=== PATIENT | male | born 1985 | race Caucasian/White ===

== ENCOUNTER 2022-02-04 11:02 | Outpatient (CLI) | payer BC, SELFPAY | END 2022-02-04 11:03 | disposition home or self-care (01) | LOC: AMB 02-16 14:31 | PROVIDERS: Visit Provider Family Medicine | DX: S89.91XA Unspecified injury of right lower leg, initial encounter (principal); S89.92XA Unspecified injury of left lower leg, initial encounter; V49.3XXA Car occupant (driver) (passenger) injured in unspecified nontraffic accident, initial encounter; Y92.410 Unspecified street and highway as the place of occurrence of the external cause | CPT/HCPCS: A0425; A0433 ==

== ENCOUNTER 2023-10-31 12:01 | Emergency (ER) | payer BC, SELFPAY ==
[2023-10-31 12:15] VITALS: BP 164/99; PULSE 69; RESP 16; TEMP 36.8; O2SAT 95; BMI 40.6
[2023-10-31 12:29] LABS: Appearance Urine Clear (Clear); Bilirubin Urine Negative (Negative); Blood Urine Negative (Negative); Color Urine Yellow (Yellow); Glucose Urine Negative (Negative); Ketones Urine Negative (Negative); Leukocyte Esterase Urine Negative (Negative); Nitrite Urine Negative (Negative); Protein Urine Negative (Negative)
--- NOTE | 2023-10-31 12:39 | CRLHL7_ITS ---
For Patients: As a result of the Century Cures Act, medical imaging exams and procedure reports are released immediately into your electronic medical record. You may view this report before your referring provider. If you have questions, please contact your health care provider. INDICATION: Abdominal pain, diverticulitis?. TECHNIQUE: CT abdomen and pelvis acquired with 98 cc Omnipaque 350 IV contrast. COMPARISON: None. FINDINGS: Lower chest: Unremarkable. Liver: Unremarkable. Normal in size and attenuation. No suspicious masses. Gallbladder and bile ducts: Unremarkable. No stones or inflammation. No biliary dilatation. Pancreas: Unremarkable. No mass or inflammation. Spleen: Unremarkable. Normal in size. No masses. Adrenal glands: Unremarkable. No nodules. Kidneys: Unremarkable. No suspicious masses, stones, or hydronephrosis. GI tract: Thickening of the sigmoid colon with surrounding soft tissue stranding and peritoneal thickening. Descending colonic and sigmoid diverticulosis. No evidence fluid collection. No obstruction. Normal appendix. Vasculature: Abdominal aorta is normal in caliber. Mesenteric arteries are patent. Lymph nodes: No lymphadenopathy. Peritoneum/Abdominal Wall: No evidence of free air or free fluid. Tiny fat containing umbilical hernia. Pelvis: Unremarkable. Bones: T10-L2 PSIF. Mild degenerative disease of the spine. IMPRESSION: Acute uncomplicated sigmoid diverticulitis. Please note that all CT scans at this facility use dose modulation, iterative reconstruction, and/or weight-based dosing when appropriate to reduce radiation dose to as low as reasonably achievable. Dictated by Sarah Hare MD @ 10/31/2023 2:51:21 PM (Electronically Signed)
--- NOTE | 2023-10-31 12:40 | ED.ABDPAIN ---
HPI - Abdominal Pain General Chief Complaint: Abdominal Pain Stated Complaint: Poss diverticulitis Time Seen by Provider: 10/31/23 12:32 History of Present Illness HPI narrative: This 38-year-old male comes in reporting abdominal pain that is constant and occurring over the past 2 or 3 days. He states that he has a history of diverticulosis seen on colonoscopy but has never had diverticulitis. Other family members have had diverticulitis. He reports increased pain when attempting have a bowel movement. He also reports a feeling of incomplete voiding of urine when passing urine. He has not had any fevers. There is no report of blood in the toilet. Related Data Previous Rx's ?Medication ?Instructions ?Recorded ciprofloxacin HCl 500 mg tablet 500 mg PO BID #10 tabs 10/31/23 (Cipro) ketorolac 10 mg tablet 10 mg PO Q8H 5 days #15 tabs 10/31/23 metronidazole 500 mg tablet 500 mg PO BID 7 days #14 tabs 10/31/23 Allergies Allergy/AdvReac Type Severity Reaction Status Date / Time ampicillin Allergy Mild Unknown Verified 11/05/21 11:16 sulbactam Allergy Mild Unknown Verified 11/05/21 11:16 morphine Allergy Unknown Verified 11/05/21 11:16 Review of Systems Status of ROS Reports: 10 or more systems reviewed and unremarkable except as noted in History and below Narrative Constitutional: No fevers, no weight gain or loss. Eyes: No discharge. No vision changes. HENT: No congestion, no sore throat, no ear pain. Cardiovascular: No chest pain, no palpitations. Respiratory: No shortness of breath, no wheezes, no cough. Gastrointestinal: No vomiting, no diarrhea. Abdominal pain as described above. Genitourinary: No dysuria, no hematuria. Musculoskeletal: Normal range of motion. Skin: No rashes, no pruritis. Neurological: No dizziness, weakness, sensory change, speech change. Endo/Heme/Allergies: No bruising or bleeding. No polydipsia. Pysch: no suicidality, no anxiety, no insomnia. All other systems reviewed and are negative. [facility] Social History Smoking Status: Smoker, status unknown Exam Narrative: Exam Narrative: Constitutional: Well-developed, well-nourished, no acute distress. HEENT: Normocephalic, atraumatic. Neck: Normal range of motion. Nontender. Supple. Heart: Regular. No murmurs. Normal rate. Intact distal pulses. Lungs: Clear to auscultation. No chest discomfort. No wheezes, rhonchi, or rales. Abdomen: Normal bowel sounds. Tender in the mid lower abdomen. No rebound tenderness. Genitalia: Deferred. Back: No midline tenderness. Normal range of motion. Extremities: Normal range of motion. No injury. Skin: Intact. No rash. Warm. No erythema or pallor. Neurologic: No altered sensation. No weakness. Alert and oriented. Psychiatric: No suicidality. No anxiety or depression. No insomnia. Nursing notes and vitals signs are reviewed. Const: Vital Signs, click to edit/add: Vital Signs - 24 hr 10/31/23 12:15 10/31/23 14:48 Temperature 98.2 F Pulse Rate [Pulse Oximeter] 69 76 Respiratory Rate 16 16 Blood Pressure [Ri ght Upper Arm] 164/99 H 151/96 H Pulse Oximetry 95 97 Oxygen Delivery Me thod Room Air Room Air Course Vital Signs Vital signs: Initial Vital Signs Temperature 98.2 F 10/31/23 12:15 Temperature Source Temporal Artery Scan 10/31/23 12:15 Pulse Rate 69 10/31/23 12:15 Respiratory Rate 16 10/31/23 12:15 Blood Pressure 164/99 H 10/31/23 12:15 Blood Pressure Mean 120 H 10/31/23 12:15 Blood Pressure Position Sitting 10/31/23 12:15 Pulse Oximetry 95 10/31/23 12:15 Oxygen Delivery Method Room Air 10/31/23 12:15 Vital Signs Temperature 98.2 F 10/31/23 12:15 Pulse Rate 69 10/31/23 12:15 Respiratory Rate 16 10/31/23 12:15 Blood Pressure 164/99 H 10/31/23 12:15 Pulse Oximetry 95 10/31/23 12:15 Oxygen Delivery Method Room Air 10/31/23 12:15 Temperature 98.2 F 10/31/23 12:15 Pulse Rate 76 10/31/23 14:48 Respiratory Rate 16 10/31/23 14:48 Blood Pressure 151/96 H 10/31/23 14:48 Pulse Oximetry 97 10/31/23 14:48 Oxygen Delivery Method Room Air 10/31/23 14:48 MDM - Abdominal Pain MDM Narrative Medical decision making narrative: This patient comes in with abdominal pain that is suspicious for diverticulitis. An IV was established and CT imaging does show evidence of acute uncomplicated diverticulitis. His white count is slightly elevated. Urinalysis is negative for infection. The patient received prescriptions for Cipro, Flagyl, and Toradol. Lab Data Labs: Lab Results 10/31/23 10/31/23 Range/Units 12:04 12:45 WBC 12.07 H (4.50-11.00) K/uL RBC 4.95 (4.30-5.90) m/uL Hgb 15.1 (13.5-17.5) gm/dL Hct 43.6 (37.0-53.0) % MCV 88 (80-100) fL MCH 31 (26-34) pg MCHC 35 (32-36) gm/dL RDW Coeff of Alexa 13.0 (11.5-15.5) % Plt Count 254 (140-440) K/uL Neut % (Auto) 57.4 (42.0-72.0) % Lymph % (Auto) 31.6 (20-44) % Wetzel % (Auto) 8.4 (0.0-11.0) % Eos % (Auto) 2.2 (0.0-7.0) % Baso % (Auto) 0.2 (0.0-3.0) % Neut # (Auto) 6.90 (1.7-7.0) K/uL Lymph # (Auto) 3.80 H (0.90-2.90) K/uL Wetzel # (Auto) 1.00 H (0.00-0.90) K/UL Eos # (Auto) 0.30 (0.00-0.50) K/uL Baso # (Auto) 0.00 (0.00-0.30) K/uL Abs Immat Gran (auto) 0.00 (0.00-0.30) K/uL Imm/Tot Granulo (auto) 0.2 % Urine Color Yellow (Yellow) Urine Appearance Clear (Clear) Urine pH 7.0 (5.0-8.5) Ur Specific Halfway 1.020 (1.000-1.030) Urine Protein Negative (Negative) Urine Glucose (UA) Negative (Negative) Urine Ketones Negative (Negative) Urine Blood Negative (Negative) Urine Nitrite Negative (Negative) Urine Bilirubin Negative (Negative) Urine Urobilinogen 1.0 (0.2-1.0) Ur Leukocyte Esterase Negative (Negative) Urine RBC 0-2 (0-2) Urine WBC 0-2 (0-5) Ur Squamous Epith Cells Few (None-Few) Urine Bacteria None (None) Imaging Data CT scan - abdomen: Radiologist's impression: Acute uncomplicated sigmoid diverticulitis. Discharge Plan Discharge Clinical Impression: Diverticulitis Patient Disposition: Home, Self-Care Condition: Stable Additional Instructions: Take medications as prescribed. Is recommended to add fiber to your diet such as Metamucil, Citrucel, or Benefiber. Follow up with MD return if worsening. Prescriptions: New ketorolac 10 mg tablet 10 mg PO Q8H 5 Days Qty: 15 0RF ciprofloxacin HCl [Cipro] 500 mg tablet 500 mg PO BID Qty: 10 0RF metronidazole 500 mg tablet 500 mg PO BID 7 Days Qty: 14 0RF Follow Up/Referrals: Provider,Not a Local [Primary Care Provider] - Stand Alone Forms: TraceLink Info Instructions
[2023-10-31 12:44] LABS: RBC Urine 0-2 (0-2); Squamous Epithelial Cell Urine Few (None-Few); WBC Urine 0-2 (0-5)
[2023-10-31 13:01] LABS: Basophils Percent Auto 0.2 % (0.0-3.0); Eosinophils Percent Auto 2.2 % (0.0-7.0); Hematocrit 43.6 % (37.0-53.0); Hemoglobin* 15.1 gm/dL (13.5-17.5); Immature Granulocytes Pct Auto 0.2 %; Lymphocytes Percent Auto 31.6 % (20-44); Mean Corpuscular HGB Conc 35 gm/dL (32-36); Mean Corpuscular Hemoglobin 31 pg (26-34); Mean Corpuscular Volume 88 fL (80-100); Monocytes Percent Auto 8.4 % (0.0-11.0); Neutrophils Percent Auto 57.4 % (42.0-72.0); Platelet Count* 254 K/uL (140-440); Red Blood Count 4.95 m/uL (4.30-5.90); White Blood Count* 12.07 K/uL (4.50-11.00)
--- OUTSIDE RECORDS SUMMARY | 2023-10-31 13:03 | XMS_ITS | Encounter Summary ---
Author Organization [facility] Address [address] [place] [address] Care Team Providers Care Engineering Specialist Name Role Phone No Primary/Referring, Phy Primary Care Provider Unavailable Reason for Visit * Reason Comments LEG PAIN Encounter Details Date Type Department Care Team (Late st Contact Info) Description 02/07/2022 Nurse Triage Careline [address] [facility]. [place], [place] [id number] Unassigned, Provider [address] [place] [address] LEG PAIN Social History Tobacco Use Types Packs/Day Years Used Date Smoking Tobacco: Never Assessed Sex and Gender Information Value Date Recorded Sex Assigned at Not on file Gender Identity Not on file Sexual Orientation Not on file documented as of this encounter Nursing Notes * Vicky Tang RN - 02/07/2022 5:37 PM CST See TE dated today. Vicky Tang RN 02/07/2022, 5:37 PM GAGE LOAN REVIEWER * Zulay Calderon - 02/07/2022 10:14 AM CST Verified patient identity using three identifiers: Yes Caller's relationship to patient: Self Do you get your primary care at a [facility] or [facility] clinic: No/Other Other (Clinic Name) [facility] Select Member: No Are you calling about a positive COVID result: No Symptoms Describe the reason for call/symptoms (include location and duration if applicable): Patient havingsevere pain in the right leg, 8/10 pain now. Plan:Caller transferred directly to CareLine nurse. GAGE LOAN REVIEWER documented in this encounter Plan of Treatment Not on file documented as of this encounter Visit Diagnoses Not on filedocumented in this encounter Care Teams Engineering Specialist Relationship Specialty Start Date End Date No Primary/Referring, Phy PCP - General 02/04/22 documented as of this encounter
--- OUTSIDE RECORDS SUMMARY | 2023-10-31 13:03 | XMS_ITS | Clinical Summary ---
Author Organization [facility] Address [place], [place] [address] Care Team Providers Care Certified Midwife Name Role Phone Pcp, No Primary Care Provider Unavailabl e Allergies Active Allergy Reactions Criticality Noted Date Comments Morphine Nausea And Vomiting 11/11/2007 Ampicillin-Sulbactam Rash High 11/15/2007 Medications Medication Sig Dispensed Refills Start Date End Date Status methylphenidate (RITALIN LA) 30 mg SR capsuleIndications:A ttention deficit disorder Take 1 capsule by mouth once daily. Dx: 314.00 ADD 30 capsule 0 11/30/2014 Active Active Problems Problem Noted Date Diagnosed Date Elevated BP 10/24/2014 Controlled substance agreement signed 06/02/2013 Abnormality of gait 11/23/2007 Back pain 11/22/2007 T12 fx 11/11/07 11/11/2007 DISORDER, ATTENTION DEFICIT W/O HYPERACTIVITY Overview: Ok to given 3 separate 1 month prescriptions. Controlled substance agreement for Ritalin LA, 30mg. on file and signed 05/2013. Prescribing physician: Yoli Samaniego PA-C Diagnosis: ADD. ABDOMINAL PAIN, EPIGASTRIC Resolved Problems Problem Noted Date Diagnosed Date Resolved Date Closed Fracture of Tarsal bone L Heel 11/22/2007 06/02/2013 Overview: NWB 6 weeks Aspiration pneumonia 11/22/2007 014 WARTS - NON GENITAL 09/23/2000 06/03/19 14 INJURY, CRUSHING, LOWER LEG 09/16/1999 11/23/2007 Immunizations Name Administration Dates Next Due DTP 08/30/1992 Hepatitis B (Peds) 06/01/2000,12/02/1999, 000 MMR 09/13/1999,08/30/1992 Oral Polio Vaccine 08/30/1992 Tdap 04/04/2008 Family History Medical History Relation Name Comments Diabetes Father Genetic Other 1 cancer-grandfat her~thyroid-grandmother~arthritis-grandm other Genetic Other 2 GGF skin cancer ~PGM thyroid disorder~MGM CAD~PGF colon CA~no DM, HTN Relation Name Status Comments Father Other 1 Other 2 Social History Tobacco Use Types Packs/Day Years Used Date Smoking Tobacco: Never Smokeless Tobacco: Never Tobacco Cessation:Counseling Given: Yes Alcohol Use Standard Drinks/Week Comments Yes 0 (1 standard drink = 0.6 oz pur e alcohol) Sex and Gender Information Value Date Recorded Sex Assigned at Not on file Gender Identity Not on file Sexual Orientation Not on file Obstetrics History Last Filed Vital Signs Vital Sign Reading Time Taken Comments Blood Pressure 125/85 07/21/2015 10:56 AM CDT Pulse 83 07/21/2015 10:56 AM CDT Temperature 36.7 ??C (98 ??F) 07/21/2015 10: 56 AM CDT Respiratory Rate 12 02/18/2012 6:57 PM NUCLEAR MONITORING TECHNICIAN Oxygen Saturation 95% 07/21/2015 10: 56 AM CDT Inhaled Oxygen Concentration - - Weight 115.6 kg (254 lb 12.8 oz) 2015 10:56 AM CDT Height 174.7 cm (5' 8.78) 07/21/2015 1 0:56 AM CDT Body Mass Index 37.87 07/21/2015 10:56 AM CDT Plan of Treatment Health Maintenance Due Date Last Done Comments Depression screening for age 12+ 1999 HIV for age 15-65 05/16/2002 Hepatitis C screening for ag e 18-79 05/16/2005 BMI (ht and wt on same day) for age 18+ 07/20/2016 07/21/2015 Tetanus booster 04/04/2018 04/04/2008 Lipids for age 35-44 05/16/2022 COVID-19 vaccine series ( season) 2022 Influenza for age 9-49 11/01/2023 Tdap Completed 04/04/2008 Pneumococcal series for age 6-64 Aged Out No longer eligible based on patient's age to complete this topic Medical Devices Implanted Type Area Heavy Equipment Operator Device Identifier Shelf Expiration Date Model / Serial / Lot Screw Legacy 4.5x35 Titnm M/A [id number] - [id number] Implanted:Qty: 1 on 11/15/2007 at [facility] Left: Spine SOFAMOR DANEK [id number]# / [id number] / 3 253 7 09 NOV 2007 Description:SCREW AT T10-T11 Mastergraft Matrix - [id number] Implanted:Qty: 1 on 11/15/2007 at [facility] Bilateral: Spine SOFAMOR DANEK 12/31/2008 [id number]# / / [id number] Mastergraft Matrix - [id number] Implanted:Qty: 1 on 11/15/2007 at [facility] Bilateral: Spine SOFAMOR DANEK 04/02/2009 [id number]# / / [id number] Kevon Legacy 50cm Grad Iv Ti Lined - S3 253 7 09 Nov 2007 Implanted:Qty: 1 on 11/15/2007 at [facility] Bilateral: Spine SOFAMOR DANEK [id number]# / 3 253 7 09 NOV 2007 / [id number] Screw Set Break-Off Hex Titnm - S3 253 7 09 Nov 2007 Implanted:Qty: 8 on 11/15/2007 at [facility] Bilateral: Spine SOFAMOR DANEK [id number]# / 3 253 7 09 NOV 2007 / Cnnctr Ti 5.5 39-45mm Crosslink Ext Fix Lp - [id number] Implanted:Qty: 1 on 11/15/2007 at [facility] Bilateral: Thoracic Vertebrae SOFAMOR DANEK [id number]# / / [id number] Description:DIRECTOR AUTOMOTIVE LOAD: 3 254 5 10 NOV 2007 CROSSLINK IIMPLANTED AT BILAT T12 Screw Legacy 5.5x40 Titnm M/A [id number] - S3 253 7 09 Nov 2007 Implanted:Qty: 1 on 11/15/2007 at [facility] Left: Spine SOFAMOR DANEK [id number]# / 3 253 7 09 NOV 2007 / [id number] Description:SCREW AT T11 Screw Legacy 5.5x25 Titnm M/A [id number] - [id number] Implanted:Qty: 1 on 11/15/2007 at [facility] Left: Spine SOFAMOR DANEK [id number]# / / [id number] Description:L2 LUMBAR SPINE Screw Legacy 5.0x40 Titnm M/A [id number] - S3 253 7 09 Nov 2007 Implanted:Qty: 1 on 11/15/2007 at [facility] Right: Spine SOFAMOR DANEK [id number]# / 3 253 7 09 NOV 2007 / [id number] Description:SCREW AT L1 Screw Legacy 5.0x40 Titnm M/A [id number] - S3 253 7 09 Nov 2007 Implanted:Qty: 1 on 11/15/2007 at [facility] Left: Spine SOFAMOR DANEK [id number]# / 3 253 7 09 NOV 2007 / [id number] Description:SCREW AT L1 Screw Legacy 5.5x40 Titnm M/A [id number] - S3 253 7 09 Nov 2007 Implanted:Qty: 1 on 11/15/2007 at [facility] Right: Spine SOFAMOR DANEK [id number]# / 3 253 7 09 NOV 2007 / [id number] Description:SCREW AT T11 Screw Legacy 5.0x45 Titnm M/A [id number] - S3 253 7 09 Nov 2007 Implanted:Qty: 1 on 11/15/2007 at [facility] Right: Spine SOFAMOR DANEK [id number]# / 3 253 7 09 NOV 2007 / [id number] Description:SCREW AT L1 Screw Legacy 5.0x45 Titnm M/A [id number] - S3 253 7 09 Nov 2007 Implanted:Qty: 1 on 11/15/2007 at [facility] Right: Spine SOFAMOR DANEK [id number]# / 3 253 7 09 NOV 2007 / [id number] Description:SCREW AT L2 Kit Infuse Bone Graft [id number] - [id number] Implanted:Qty: 1 on 11/15/2007 at [facility] Bilateral: Spine Medtronic 06/30/2009 [id number]# / / [id number] Advance Directives * Full Code (Latest Code Status on File) Date Activated Date Inactivated Comments 11/22/2007 5:10 PM 11/26/2007 9:55 PM * Full Code Date Activated Date Inactivated Comments 11/15/2007 3:05 PM 11/22/2007 4:21 PM * Full Code Date Activated Date Inactivated Comments 11/14/2007 11:27 AM 11/15/2007 3:05 PM * Full Code Date Activated Date Inactivated Comments 11/11/2007 5:03 PM 11/14/2007 11:27 AM * Full Code Date Activated Date Inactivated Comments 11/11/2007 1:52 PM 11/11/2007 5:03 PM Care Teams Certified Midwife Relationship Specialty Start Date End Date Pcp, No . PCP - General 01/20/23
--- OUTSIDE RECORDS SUMMARY | 2023-10-31 13:03 | XMS_ITS | Clinical Summary ---
Author Organization [facility] Address [address] [place] [address] Care Team Providers Care Plastics Tooling Engineer Name Role Phone No Primary/Referring, Phy Primary Care Provider Unavailable Source Comments You are receiving this document as you are listed as the primary care provider,follow-up provider, or the patient has been referred to you for consultation.This is in compliance with the Medicare and[facility] EHR Incentive Program,which states Providers who transition their patient to another setting of careor provider of care or refers their patient to another provider of care shouldprovide summary care record for each transition of care or referral. [facility] Allergies Active Allergy Reactions Criticality Noted Date Comments Ampicillin-Sulbactam Sodium Rash 02/04/2022 Morphine Other, see comments 02/04/2022 Nausea/Vomiting Medications Medication Sig Dispensed Refills Start Date End Date Status dicyclomine (BENTYL) 20 MG tablet Take 1 Tablet (20 mg) by mouth three times a day. Active [place]-3 Fatty Acids (FISH OIL OR) Take 1 Capsule by mouth daily. Active magnesium oxide (AKA MAG-OX) 500 MG tablet Take 1 Tablet (500 mg) by mouth daily. Active MILK THISTLE OR Take 1 Tablet by mouth daily. Active ascorbic acid (AKA VITAMIN C) 1000 MG tablet Take 1 Tablet (1,000 mg) by mouth daily. Active acetaminophen (TYLENOL) 500 MG tabletIndication s:Pain Take 2 Tablets (1,000 mg) by mouth three times a day. Maximum acetaminophen dose is 4000 mg in 24 hours Indications: Pain 42 Tablet 02/06/2022 Active methocarbamol (ROBAXIN) 500 MG tabletIndication s:Musculoskeleta l Pain Take 1 Tablet (500 mg) by mouth every 6 hours as needed. Indications: Musculoskeletal Pain 28 Tablet 02/06/2022 Active oxyCODONE (ROXICODONE) 5 MG immediate release tablet Take 1-2 Tablets (5-10 mg) by mouth every 4 hours as needed for Pain. Take 1 tablet for 5-7/10 pain, take 2 tablets for 8-10/10 pain. 30 Tablet 02/06/2022 Active gabapentin (NEURONTIN) 300 MG capsuleIndicatio ns:Postoperative Pain Take 1 Capsule (300 mg) by mouth two times a day. Indications: Pain Following an Operation 60 Capsule 02/06/2022 Active ketorolac (TORADOL) 10 MG tablet Take 1 Tablet (10 mg) by mouth every 6 hours as needed for Pain. 12 Tablet 02/07/2022 Active Active Problems Problem Noted Date Diagnosed Date Closed fracture of shaft of right tibia 02/05/20 22 Overview (02/04/2022): Added automatically from request for surgery [id number] Immunizations Name Administration Dates Next Due Td 04/04/2008 Social History Tobacco Use Types Packs/Day Years Used Date Smoking Tobacco: Never Assessed Sex and Gender Information Value Date Recorded Sex Assigned at Not on file Gender Identity Not on file Sexual Orientation Not on file Last Filed Vital Signs Vital Sign Reading Time Taken Comments Blood Pressure 165/103 02/06/2022 8:32 AM BRUSHER WARP Pulse 84 02/06/2022 8:32 AM BRUSHER WARP Temperature 36.6 ??C (97.8 ??F) 02/06/2022 8:32 AM CS T Respiratory Rate 18 02/05/2022 10:55 PM BRUSHER WARP Oxygen Saturation 95% 02/06/2022 8:32 AM BRUSHER WARP Inhaled Oxygen Concentration - - Weight - - Height - - Body Mass Index - - Plan of Treatment Health Maintenance Due Date Last Done Comments Hep C Screening (Preventive Services) 1987 IPV (Polio) (2 of 3 - 4-dose series) 09/27/1992 08/30/1992 HIV Screening (Preventive Services) 2003 Adult Preventive Visit 05/16/2005 HepB (1) 05/16/2006 DTaP/Tdap/Td (2 - Tdap) 04/05/2008 04/04/19 09, 04/04/2008, 08/30/1992 Cholesterol 05/16/2022 COVID-19 Vaccine (1 - 2022-2 4 season) 2022 Influenza (#1) 2023 Zoster/Shingles (1 of 2) 05/16/2037 HPV Vaccine Aged Out No longer eligi ble based on patient's age to complete this topic HepA Aged Out No longer eligi ble based on patient's age to complete this topic Hib Aged Out No longer eligi ble based on patient's age to complete this topic MCV4 Aged Out No longer eligi ble based on patient's age to complete this topic Pneumococcal Aged Out No longer eligi ble based on patient's age to complete this topic Advance Directives * Full Code (Latest Code Status on File) Date Activated Date Inactivated Comments 02/04/2022 8:31 PM 02/06/2022 3:57 PM Care Teams Plastics Tooling Engineer Relationship Specialty Start Date End Date No Primary/Referring, Geovanni PCP - General 02/04/22
[2023-10-31 13:16] LABS: Slide Review Reflex No
[2023-10-31 14:48] VITALS: BP 151/96; PULSE 76; RESP 16; O2SAT 97
== END 2023-10-31 15:13 | disposition home or self-care (01) ==
PROVIDERS: Emergency Provider Emergency Medicine Emergency Medical Services
DX: K57.32 Diverticulitis of large intestine without perforation or abscess without bleeding (principal)
CPT/HCPCS: 36415; 74177; 81001; 85025; 99284; Q9967

== ENCOUNTER 2024-06-23 13:29 | Outpatient (CLI) | payer BC, SELFPAY | END 2024-06-23 13:30 | disposition home or self-care (01) | PROVIDERS: PCP Physician Assistant Medical; Visit Provider Physician Assistant Medical | DX: Z00.01 Encounter for general adult medical examination with abnormal findings (principal); E66.01 Morbid (severe) obesity due to excess calories; Z13.29 Encounter for screening for other suspected endocrine disorder | CPT/HCPCS: 80053; 80061; 84443 ==

== ENCOUNTER 2024-08-17 14:59 | Emergency (ER) | payer BC, SELFPAY ==
--- OUTSIDE RECORDS SUMMARY | 2024-08-17 15:01 | XMS_ITS | Data Portability ---
Author Organization [place] [facility] Address [address] [place] [address] Care Team Providers Care Bicycle Repairer Name Role Phone BOOKER ELIZA Primary Care Provider [phone] Assessment Encounter Date Assessment Date Assessment LastModified by Organization Details LastModified Time 06/13/2024 06/13/2024 We reviewed the permanent nature of the procedure as well as the 1:2000 risk of vasectomy failure and a 1% to 2% chance of chronic testicular pain. We further discussed the need for a semen analysis at three months postoperatively to assure azoospermia prior to discontinuation of secondary contraceptive measures. We discussed the potential for decreased semen volume following the procedure and noted that a vasectomy is not associated with any changes in penile sensation, erectile function, or testosterone production. We additionally reviewed the poorly defined association between vasectomy and prostate cancer and further reviewed specific risks of the procedure including hemorrhage, infection, and loss of the testicle. Plan: 1. patient would like to move forward with vasectomy in the office first available 2. He will not use mild sedation to be taken 30-60 minutes [email or web address] Not available 06/13/2024 16:13:26 Plan of Treatment Reminders Order Date Submit Date Provider Last Modified By Organization Details Last Modified Time Details Appointments None recorded. Lab None recorded. Referral None recorded. Procedures vasectomy (PROC) 2024 025 [email or web address] Not available 08:00:03 Surgeries None recorded. Imaging None recorded. Medication Orders oxycodone 5 mg tablet 2024 025 [id number], [address], [address], 10:16:03 ibuprofen 200 mg tablet 2024 025 [id number], [address], [address], 10:16:03 Tylenol Extra Strength 500 mg tablet 2024 025 [id number], [address], [address], 10:16:02 Patient TargetsNo targets recorded. Patient Instructions Encounter Date Encounter Id Patient Instructions Last Modified By Organization Details Last Modified Time 06/13/2024 [id number] SURGICAL ELECTIV E STERILIZATION: VASECTOMY WHAT IS A VASECTOMY? A vasectomy makes a man sterile by obstructing the flow of sperm through the vas deferens. A small puncture in the scrotum is used to isolate a section of the vas deferens. A small portion of the vas deferens is then removed and the vas is occluded. The procedure is typically performed in the office using a local anesthesia, but can be performed at a surgery center under sedation. (Please check with your insurance carrier if you would like sedation, to make sure you qualify.) After a vasectomy it takes at least 3 months to completely clear your ejaculation of sperm. We provide you with a container for a semen analysis to prove that yourvasectomy has been successful (Note: some men have to leave multiple samples to show that their vasectomy has been successful. Please see the [facility] Post-Vasectomy Instruction Sheet for additional details). We believe that proving your sterility is your responsibility. We try to make it easy for you, but you are responsible for collecting and bringing your sample to our office. You must continue to use other forms of contraception until you prove that your vasectomy has been successful. SCHEDULING A VASECTOMY Scheduling a vasectomy is easy. It will consist of a brief office visit with a surgeon to discuss the risks of the procedure and so the surgeon can make sure that you are a good candidate for a vasectomy. Once you are medically cleared and questions are answered, another appointment is made for the actual procedure. POSSIBLE RISKS FROM HAVING A VASECTOMY 1. Recanalization: This word means spontaneous reconnection of the vas deferens and failure of the vasectomy. This complication is rare. Although it can occur at any time, even years later, it most often occurs during the first 6-8 weeks after the procedure. We can t say this enough: Patients must prove that they are sterile by providing semen samples void of sperm before discontinuing other forms of control. 2. : Believe it or not, there are patients who prove they have no sperm in their semen but still father a child. The rate of after a successful vasectomy reported in literature is 0.05% or less. 3. Infection: Uncommon, and usually mild. Most often it can be treated with antibiotics. 4. Bleeding: Usually mild, although a large blood clot called a hematoma can develop and typically resolve by itself. 5. Pain: Pain usually lasts several days and goes away. Pain that lasts months to years is rare. 6. Sperm Granuloma: This is a small scar that sometimes forms where the vas is cut and is not harmful. 7. Sperm Antibodies: These antibodies help the body get rid of the sperm. They are not harmful to you but may make it difficult to achieve if you have the vasectomy reversed. PREPARING FOR A VASECTOMY How to choose a good appointment time: Carve a few days out of your busy schedule when you can recover. Too many men try to go back to normal activities too soon. Men with desk-jobs can usually go back to work after a weekend; men who do heavy labor may want to have a full week set aside to recover. Most men won t need that sort of time, but for those who do it is nice to have. Seven days before the procedure: Stop taking aspirin, ibuprofen (Advil, Motrin), vitamin E, herbal supplements, or any medication that you take to thin the blood. If you are on Warfarin, Coumadin or Plavix, call you physician regarding these medications. Make sure you have some tight underwear or a jock strap to bring to the vasectomy appointment. Wearing supportive underwear for a few days rather than boxers helps to prevent swelling. Buy some triple antibiotic ointment (Bacitracin, Neosporin, generic) to put on the puncture sites. You won t need a big tube because the incisions are small and you only need to put it on for a few days. The day of the procedure: Eat normally unless you are being anesthetized. Please shower or wash the scrotum before the procedure to help reduce the risk of infection. Remember to bring the supportive underwear or jock strap so you can wear it home. Having someone drive you is only mandatory if you are being sedated. AFTER YOUR VASECTOMY Go home. Relax. Show this sentence to your : Plan on being lazy for at least [address] ice pack on the scrotum (one hour on/one hour off-do not put ice directly on the skin) to minimize swelling. You may shower after 24 hours. Be careful in the shower if you are taking any new prescription medication for the vasectomy, such as narcotic pain medication. Do not lift anything over 20 pounds for seven days. After that, use your judgment. A good rule of thumb: if you are wondering if you should, you probably shouldn t . Resume normal activity slowly. Wait at least seven days before resuming sexual activity, preferably two weeks. It is normal to have discomfort with sex initially. Don t worry, that gets better quickly. It takes some men a few weeks to start feeling totally normal, so be patient. Don t worry about calling with questions if you don t think you are healing well enough; most of the time you just need a little reassurance. Issues that require a phone call are: fever above 100.5; bleeding that doesn t stop for a couple hours after the procedure; progressive scrotal swelling; incision drainage; pain that cannot be controlled with pain medication. A FINAL REMINDER You are not sterile until your semen is completely free of sperm. You must take the responsibility to bring samples into our office to prove your vasectomy is a success. If you follow the instructions above it should be. [email or web address] Not available 06/10/2024 10:04:33 07/04/2024 [id number] post vasectomy patient instructions [email or web address] Not available 07/04/2024 10:16:00 Reason for Referral None Reported. Procedures Surgical History Date Name Laterality Status Provider Name and Address Organization Details Recorded Time DG - vasectomy completed Sveta PRITCHETT [facility] 07/04/2024 09:10:46 5 vasectomy completed Sveta PRITCHETT [facility] 07/04/2024 09:10:27 Imaging Results None recorded. Procedure Notes None recorded. Medical Equipment None Reported. Allergies Allergen ID Allergen Name Allergen Category Reaction Reaction Severity Criticality Documentation Date Start Date Code Code System Note Provider Name and Address Organization Details Recorded Time 126577 ampicilli n / sulbactam medicatio n rash Not available high 06/13/20242007 17686 48 [facility]28 120992 morphine medicatio n other Not available Not available 06/13/20242021 7052 RxNorm Nause a/V[facility]ing [facility]31 Medications Name Sig Start Date Stop Date Status Note LastModified by Organization Details LastModified Time metronidazo le 500 mg tablet TAKE 1 TABLET BY MOUTH TWICE DAILY FOR 7 DAYS 06/13 completed Not Available Not Available Not Available ciprofloxac in 500 mg tablet TAKE 1 TABLET BY MOUTH TWICE DAILY 06/13 completed Not Available Not Available Not Available ketorolac 10 mg tablet TAKE 1 TABLET BY MOUTH EVERY 8 HOURS FOR 5 DAYS 06/13 completed Not Available Not Available Not Available ibuprofen 200 mg tablet Take 3 tablets every 6 hours by oral route with meal(s) for 3 days, for alternate with Tylenol. 2024 active Not Available Not Available Not Avai lable Tylenol Extra Strength 500 mg tablet Take 2 tablets every 6 hours by oral route for 3 days, for alternate with ibuprofen . 2024 active Not Available Not Available Not Avai lable oxycodone 5 mg tablet Take 1 tablet every 4 hours by oral route as directed, for take as needed for pain uncontrol led with OTC ibuprofen and Tylenol. 2024 active Not Available Not Available Not Avai lable methylpheni date CD 10 mg biphasic 30-70 capsule,ext ended release TAKE ONE CAPSULE BY MOUTH IN THE MORNING* active Not Available Not Available No t Available methylpheni date CD 20 mg biphasic 30-70 capsule,ext ended release TAKE ONE CAPSULE BY MOUTH EVERY DAY IN THE MORNING.* active Not Available Not Available No t Available Vitals Date Recorded Body height Body mass index (BMI) Body weight Provider Name and Address Organization Details Last Updated DateTime 06/13/2024 175.26 cm 40.6 kg/m2 747272.9 g Sveta Baker [facility] 06/13/2024 15:52:18 Date Recorded Body height Body mass index (BMI) Body weight Provider Name and Address Organization Details Last Updated DateTime 07/04/2024 175.26 cm 40.6 kg/m2 123561.9 g Sveta Baker [facility] 07/04/2024 09:10:04 Social History Question Answer Notes LastModified by Organizat Fnbox Details LastModified Time Tobacco Smoking Status Never Smoker Sveta stafford, [facility] 06/13/2024 15:53:06 What Is Your Level Of Caffeine Consumption? Moderate [email or web address] Information not available 06/13/2024 What Was The Date Of Your Most Recent Tobacco Screening? 07/04/2024 [email or web address] Information not available 07/04/2024 Sex: Male Functional Status Question Answer Note LastModified by Organizat ion Details LastModified Time What is your level of alcohol consumption? Occasional [email or web address] Information not available 06/13/2024 Mental Status None recorded. Family History Nothing Reported. Medical History No medical history recorded. Immunizations Vaccine Type Date Status Note Provider Nam e and Address Organization Details Recorded Time Td (adult), 2 Lf tetanus toxoid, preservative free, adsorbed 9 completed Not Available [facility] 07/04/2024 09:38:06 Td (adult), 5 Lf tetanus toxoid, preservative free, adsorbed 5 completed Not Available [facility] 07/04/2024 09:38:05 Past Encounters Encounter ID Performer Location Encounter Start Date Encounter Closed Date Diagnosis/Indication Diagnosis SNOMED-CT Code Diagnosis ICD10 Code Diagnosis Note [id number] MD PETE AIKEN_Kinjal [address] [place] [address] 06/13/2024 15:45:45 06/17/2024 10:04:57 Male sterilization 349894547 Z30.2 The patient expressed understand ing of the plan involved, and all questions were answered. [id number] MD Ivone AIKEN [address] [place] [address] 07/04/2024 08:59:24 07/05/2024 10:36:17 Male sterilization 502706479 Z30.2 The patient expressed understand ing of the plan involved, and all questions were answered. Sterilizat ion procedure 517143276 Z30.2 Health Concerns Section Related Observation LastModified by Organization Detai ls LastModified Time None Recorded Concern Status LastModified by Organization Details LastModified Time None Recorded Advance Directives Directive None Recorded Payers Insurance Date Sequence Insurance Name Policy Number Policy Garcia Covered Member ID Garcia Member ID Guarantor Name 07/01/2024 1 [facility] [id number] Quinton Solorzano [id number] Carlos Alberto Solorzano Notes Date Note Type Note Provider Name and Address Organization Details Recorded Time 06/13/2024 text/html The patient is a 39 year old male here today to discuss a bilateral vasectomy. Reason the prefer vasectomy over other methods - convenience Scrotal trauma, surgery, or infections - no DOROTHY CANO MD [address] [place] [address], [phone], [facility] 06/13/2024 16:13:40 07/04/2024 text/html The patient is here today for bilateral office-based vasectomy. DOROTHY CANO MD [address] [place] [address], [phone], [facility] 07/04/2024 10:16:09
--- OUTSIDE RECORDS SUMMARY | 2024-08-17 15:01 | XMS_ITS | Continuity of Care Document ---
Author Organization [facility], [facility] Address [address] [place] [address] Care Team Providers Care Analytics Lead Name Role Phone ELIZA CELESTE Primary Care Provider Assessment No assessment recorded. Plan of Treatment Reminders Order Date Submit Date Provider Last Modified By Organization Details Last Modified Time Details Appointments None recorded. Lab None recorded. Referral None recorded. Procedures None recorded. Surgeries None recorded. Imaging None recorded. Medication Orders oxycodone 5 mg tablet 2024 025 [id number], [address], [address], 10:16:03 ibuprofen 200 mg tablet 2024 025 [facility], [address], [address], 10:16:03 Tylenol Extra Strength 500 mg tablet 2024 025 [facility], [address], [address], 10:16:02 Patient TargetsNo targets recorded. Patient Instructions Encounter Date Encounter Id Patient Instructions Last Modified By Organization Details Last Modified Time 07/04/2024 [id number] post vasectomy patient instructions [email or web address] Not available 07/04/2024 10:16:00 Reason for Referral None Reported. Procedures Surgical History Date Name Laterality Status Provider Name and Address Organization Details Recorded Time DG - vasectomy completed Sveta PRITCHETT - [facility] 07/04/2024 09:10:46 vasectomy completed Sveta Baker [facility] 07/04/2024 09:10:27 Imaging Results None recorded. Procedure Notes None recorded. Medical Equipment None Reported. Allergies Allergen ID Allergen Name Allergen Category Reaction Reaction Severity Criticality Documentation Date Start Date Code Code System Note Provider Name and Address Organization Details Recorded Time 885238 ampicilli n / sulbactam medicatio n rash Not available [facility] 06/13/20242007 47181 48 [facility] 15:52[facility]28 394285 morphine medicatio n other Not available Not available 06/13/20242021 7052 RxNorm Nause a/Vom [facility] 15:52:31 Medications Name Sig Start Date Stop [...] Updated DateTime 07/04/2024 175.26 cm 40.6 kg/m2 867150.9 g Sveta Baker [facility] 07/04/2024 09:10:04 Social History Question Answer Notes LastModified by Organizat ion Details LastModified Time Tobacco Smoking Status Never Smoker Sveta Baker nydia [facility] 06/13/2024 15:53:06 What Is Your Level Of Caffeine Consumption? Moderate [email or web address] Information not available 06/13/2024 What Was The Date Of Your Most Recent Tobacco Screening? 07/04/2024 [email or web address] Information not available 07/04/2024 Sex: Male Functional Status Question Answer Note LastModified by Organizat ion Details LastModified Time What is your level of alcohol consumption? Occasional [email or web address] Information not available 06/13/2024 Mental Status None recorded. Family History Nothing Reported. Medical History No medical history recorded. Immunizations Vaccine Type Date Status Note Provider Nam e and Address Organization Details Recorded Time Td (adult), 2 Lf tetanus toxoid, preservative free, adsorbed 9 completed Not Available [facility] 07/04/2024 09:38:06 Td (adult), 5 Lf tetanus toxoid, preservative free, adsorbed 5 completed Not Available [facility] 07/04/2024 09:38:05 Past Encounters Encounter ID Performer Location Encounter Start Date Encounter Closed Date Diagnosis/Indication Diagnosis SNOMED-CT Code Diagnosis ICD10 Code Diagnosis Note [id number] MD PETE AIKEN_Kinjal [address] [place] [address] 06/13/2024 15:45:45 06/17/2024 10:04:57 Male sterilization 249833753 Z30.2 The patient expressed understand ing of the plan involved, and all questions were answered. [id number] MD PETE AIKEN_Kinjal [address] [place] [address] 07/04/2024 08:59:24 07/05/2024 10:36:17 Male sterilization 648891394 Z30.2 The patient expressed understand ing of the plan involved, and all questions were answered. Sterilizat ion procedure 492912542 Z30.2 Health Concerns Section Related Observation LastModified by Organization Detai ls LastModified Time None Recorded Concern Status LastModified by Organization Details LastModified Time None Recorded Payers Encounter Date Sequence Insurance Name Policy Number Policy Garcia Covered Member ID Garcia Member ID Guarantor Name 07/04/2024 1 [facility] [id number] Quinton Solorzano [id number] Carlos Alberto Solorzano Notes Date Note Type Note Provider Name and Address Organization Details Recorded Time 07/04/2024 text/html The patient is here today for bilateral office-based vasectomy. DOROTHY CANO MD [address], [place], [address], [facility] 07/04/2024 10:16:09
[2024-08-17 15:02] VITALS: BP 150/103; PULSE 110; RESP 18; TEMP 39.5; O2SAT 97; BMI 41.3
--- NOTE | 2024-08-17 15:37 | CRLHL7_ITS ---
For Patients: As a result of the Century Cures Act, medical imaging exams and procedure reports are released immediately into your electronic medical record. You may view this report before your referring provider. If you have questions, please contact your health care provider. INDICATION: Right upper quadrant abdomen pain TECHNIQUE: Ultrasound abdomen limited. Sonographic images of the right upper quadrant were obtained using george-scale and color Doppler images. COMPARISON: CT abdomen and pelvis October 31, 2023 FINDINGS: Liver: Diffuse increased echogenicity and mild heterogeneity. No masses. No intrahepatic biliary dilatation. Gallbladder: No stones or sludge. Normal wall thickness. No pericholecystic fluid. Common bile duct: 4 mm. Pancreas: Mostly obscured by bowel gas Right kidney: 11.3 x 5.3 x 5.1 normal echotexture and cortex. No suspicious masses, stones, or hydronephrosis. Vasculature: Proximal abdominal aorta and IVC are normal. IMPRESSION: 1. Diffuse increased echogenicity with mild heterogeneity consistent with diffuse fatty infiltration and/or diffuse disease. Dictated by Pavel Mendez MD @ 08/17/2024 4:49:23 PM (Electronically Signed)
[2024-08-17 15:57] LABS: Appearance Urine Clear (Clear); Bilirubin Urine 1+ (Negative); Blood Urine Negative (Negative); Color Urine Yellow (Yellow); Glucose Urine Negative (Negative); Ketones Urine 1+ (Negative); Leukocyte Esterase Urine Negative (Negative); Nitrite Urine Negative (Negative); Protein Urine 1+ (Negative); Specific Gravity Urine 1.025 (1.000-1.030); Urobilinogen Urine 0.2 (0.2-1.0); pH Urine 5.5 (5.0-8.5)
[2024-08-17 16:03] LABS: Basophils Absolute Auto 0.02 K/uL (0.00-0.30); Basophils Percent Auto 0.2 % (0.0-3.0); Eosinophils Absolute Auto 0.04 K/uL (0.00-0.50); Eosinophils Percent Auto 0.4 % (0.0-7.0); Hematocrit 43.6 % (37.0-53.0); Hemoglobin* 14.9 gm/dL (13.5-17.5); Immature Granulocytes Abs Auto 0.03 K/uL (0.00-0.30); Immature Granulocytes Pct Auto 0.3 %; Lymphocytes Percent Auto 13.9 % (20-44); Mean Corpuscular HGB Conc 34 gm/dL (32-36); Mean Corpuscular Hemoglobin 30 pg (26-34); Mean Corpuscular Volume 89 fL (80-100); Monocytes Percent Auto 10.6 % (0.0-11.0); Neutrophils Percent Auto 74.6 % (42.0-72.0); Platelet Count* 223 K/uL (140-440); RDW Coefficient of Variation % 12.9 % (11.5-15.5); Red Blood Count 4.91 m/uL (4.30-5.90); White Blood Count* 10.71 K/uL (4.50-11.00)
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
--- OUTSIDE RECORDS SUMMARY | 2024-08-17 16:04 | XMS_ITS | Clinical Summary ---
Author Organization [facility] Address [address] [place] [address] Care Team Providers Care Burn Crew Member Name Role Phone Pcp, No Primary Care Provider Unavailabl e Allergies Active Allergy Reactions Criticality Noted Date Comments Morphine Nausea And Vomiting 11/11/2007 Ampicillin-Sulbactam Rash High 11/15/2007 Medications methylphenidate (RITALIN LA) 30 mg SR capsuleIndicati ons:Attention deficit disorder Take 1 capsule by mouth once daily. Dx: 314.00 ADD 30 capsule 0 11/30/2014 Active Active Problems Problem Noted Date Diagnosed Date Elevated BP 10/24/2014 Controlled substance agreement signed 06/02/2013 Abnormality of gait 11/23/2007 Back pain 11/22/2007 T12 fx 11/11/07 11/11/2007 DISORDER, ATTENTION DEFICIT W/O HYPERACTIVITY Overview (06/02/2013): Ok to given 3 separate 1 month prescriptions. Controlled substance agreement for Ritalin LA, 30mg. on file and signed 05/2013. Prescribing physician: Yoli Samaniego PA-C Diagnosis: ADD. ABDOMINAL PAIN, EPIGASTRIC Resolved Problems Problem Noted Date Diagnosed Date Resolved Date Closed Fracture of Tarsal bone L Heel 11/22/2007 06/02/2013 Overview (11/22/2007): NWB 6 weeks Aspiration pneumonia 11/22/2007 014 WARTS - NON GENITAL 09/23/2000 06/03/19 14 INJURY, CRUSHING, LOWER LEG 09/16/1999 11/23/2007 Immunizations Immunization Administration Dates Next Due DTP 08/30/1992 Hepatitis [...] at Not on file Legal Sex Male 5:24 AM LIBRARY MONITOR Gender Identity Not on file Sexual Orientation Not on file Obstetrics History Last Filed Vital Signs Vital Sign Reading Time Taken Comments Blood Pressure 125/85 07/21/2015 10:56 AM CDT Pulse 83 07/21/2015 10:56 AM CDT Temperature 36.7 C (98 F) 07/21/2015 10:56 AM CDT Respiratory Rate 12 02/18/2012 6:57 PM LIBRARY MONITOR Oxygen Saturation 95% 07/21/2015 10: 56 AM CDT Inhaled Oxygen Concentration - - Weight 115.6 kg (254 lb 12.8 oz) 2015 10:56 AM CDT Height 174.7 cm (5' 8.78) 07/21/2015 1 0:56 AM CDT Body Mass Index 37.87 07/21/2015 10:56 AM CDT Plan of Treatment Upcoming Encounters Date Type Department Care Team (Late st Contact Info) Description 10/07/2024 10:15 AM CDT Office Visit [address] [place] [address] Milan Parker MD [facility] [place] [address] Health Maintenance Due Date Last Done Comments Depression screening for age 12+ 1999 HIV for age 15-65 05/16/2002 Hepatitis C screening for ag e 18-79 05/16/2005 BMI (ht and wt on same day) for age 18+ 07/20/2016 07/21/2015 Tetanus booster 04/04/2018 04/04/2008 Lipids for age 35-44 05/16/2022 COVID-19 vaccine series ( season) 2023 Influenza Vaccine (Season Ended) 2024 Hepatitis B series for 19+ Completed 06/01, 12/02/1999, 10/22/1999 Tdap Completed 04/04/2008 Pneumococcal series for age 6-49 Aged Out No longer eligible b ased on patient's age to complete this topic Medical Devices Implanted Type Area Petroleum Geologist Device Identifier Shelf Expiration Date Model / Serial / Lot Screw Legacy 4.5x35 Titnm M/A [id number] - [id number] Implanted:Qty: 1 on 11/15/2007 at [facility] Left: Spine SOFAMOR DANEK [id number]# / [id number] / 3 253 7 09 NOV 2007 Description:SCREW AT T10-T11 Mastergraft Matrix - [id number] Implanted:Qty: 1 on 11/15/2007 at [facility] Bilateral: Spine SOFAMOR DANEK 12/31/2008 [id number]# / / [id number] Mastergraft Matrix - [id number] Implanted:Qty: 1 on 11/15/2007 at [facility] Bilateral: Spine SOFAMOR DANEK 04/02/2009 [id number]# / / [id number] Kevon Legacy 50cm Grad Iv Ti Lined - S3 253 7 09 Nov 2007 Implanted:Qty: 1 on 11/15/2007 at [facility] Bilateral: Spine SOFAMOR DANEK [id number]# / 3 253 7 09 NOV 2007 / [id number] Screw Set Break-Off Hex Titnm - S3 253 7 09 Nov 2007 Implanted:Qty: 8 on 11/15/2007 at [facility] Bilateral: Spine SOFAMOR DANEK [id number]# / 3 253 7 09 NOV 2007 / Cnnctr Ti 5.5 39-45mm Crosslink Ext Fix Lp - [id number] Implanted:Qty: 1 on 11/15/2007 at [facility] Bilateral: Thoracic Vertebrae SOFAMOR DANEK [id number]# / / [id number] Description:MRB ENGINEER LOAD: 3 254 5 10 NOV 2007 CROSSLINK IIMPLANTED AT BILAT T12 Screw Legacy 5.5x40 Titnm M/A [id number] - S3 253 7 09 Nov 2007 Implanted:Qty: 1 on 11/15/2007 at [facility] Left: Spine SOFAMOR DANEK [id number]# / 3 253 7 09 NOV 2007 / [id number] Description:SCREW AT T11 Screw Legacy 5.5x25 Titnm M/A [id number] - [id number] Implanted:Qty: 1 on 11/15/2007 at [facility] Left: Spine SOFAMOR DANEK [id number]# / / [id number] Description:L2 LUMBAR SPINE Screw Legacy 5.0x40 Titnm M/A [id number] - S3 253 7 09 Nov 2007 Implanted:Qty: 1 on 11/15/2007 at [facility] Right: Spine SOFAMOR DANEK [id number]# / 3 253 7 09 NOV 2007 / [id number] Description:SCREW AT L1 Screw Legacy 5.0x40 Titnm M/A [id number] - S3 253 7 09 Nov 2007 Implanted:Qty: 1 on 11/15/2007 at [facility] Left: Spine SOFAMOR DANEK [id number]# / 3 253 7 09 NOV 2007 / [id number] Description:SCREW AT L1 Screw Legacy 5.5x40 Titnm M/A [id number] - S3 253 7 09 Nov 2007 Implanted:Qty: 1 on 11/15/2007 at [facility] Right: Spine SOFAMOR DANEK [id number]# / 3 253 7 09 NOV 2007 / [id number] Description:SCREW AT T11 Screw Legacy 5.0x45 Titnm M/A [id number] - S3 253 7 09 Nov 2007 Implanted:Qty: 1 on 11/15/2007 at [facility] Right: Spine SOFAMOR DANEK [id number]# / 3 253 7 09 NOV 2007 / [id number] Description:SCREW AT L1 Screw Legacy 5.0x45 Titnm M/A [id number] - S3 253 7 09 Nov 2007 Implanted:Qty: 1 on 11/15/2007 at [facility] Right: Spine SOFAMOR DANEK [id number]# / 3 253 7 09 NOV 2007 / [id number] Description:SCREW AT L2 Kit Infuse Bone Graft [id number] - [id number] Implanted:Qty: 1 on 11/15/2007 at [facility] Bilateral: Spine Medtronic 06/30/2009 [id number]# / / [id number] Insurance [facility] Advance Directives * Full Code (Latest Code [...] 1:52 PM 11/11/2007 5:03 PM Care Teams Burn Crew Member Relationship Specialty Start Date End Date Pcp, No . PCP - General 01/20/23
--- OUTSIDE RECORDS SUMMARY | 2024-08-17 16:04 | XMS_ITS | Encounter Summary ---
Author Organization [facility] Address [address] [place] [address] Care Team Providers Care Electronic Equipment Trades Worker Name Role Phone No Primary/Referring, Phy Primary Care Provider Unavailable Reason for Visit * Reason Comments LEG PAIN Encounter Details Date Type Department Care Team (Late st Contact Info) Description 02/07/2022 Nurse Triage Careline [address] [facility] [place], [place] [id number] Unassigned, Provider [address] [place] [address] LEG PAIN Social History Tobacco Use Types Packs/Day Years Used Date Smoking Tobacco: Never Assessed Sex and Gender Information Value Date Recorded Sex Assigned at Not on file Legal Sex Male 5:30 AM CDT Gender Identity Not on file Sexual Orientation Not on file documented as of this encounter Nursing Notes * Vicky Tang, KAREN - 02/07/2022 5:37 PM CST See TE dated today. Vicky Tang RN 02/07/2022, 5:37 PM STANT OCEANOGRAPHER * Zulay Calderon - 02/07/2022 10:14 AM [...] now. Plan:Caller transferred directly to CareLine nurse. STANT OCEANOGRAPHER documented in this encounter Plan of Treatment Not on file documented as of this encounter Visit Diagnoses Not on filedocumented in this encounter Care Teams Electronic Equipment Trades Worker Relationship Specialty Start Date End Date No Primary/Referring, Phy PCP - General 02/04/22 documented as of this encounter
[2024-08-17 16:07] LABS: Slide Review Reflex No
[2024-08-17 16:12] LABS: Lactate* 1.4 mmol/L (0.5-1.9)
[2024-08-17 16:21] LABS: Albumin* 4.7 g/dL (3.3-5.0); Chloride* 101 mmol/L (96-114); Potassium* 3.9 mmol/L (3.6-5.1); Sodium* 139 mmol/L (135-149)
[2024-08-17 16:23] LABS: Blood Urea Nitrogen* 14 mg/dL (5-24); Creatinine* 0.9 mg/dL (0.5-1.5); Est. Creatinine Clearance* 112.38; Estimated Glomerular Filt Rate 113 ml/min
[2024-08-17 16:24] LABS: Alanine Aminotransferase* 56 U/L (4-50); Alkaline Phosphatase* 70 U/L (40-150); Anion Gap 11 mEq/L (7-15); Aspartate Amino Transferase* 48 U/L (12-35); Bilirubin Direct* 0.2 mg/dL (0.0-0.5); Bilirubin Total* 1.2 mg/dL (0.1-1.5); Calcium* 9.4 mg/dL (8.4-10.6); Carbon Dioxide* 27 mmol/L (20-32); Glucose* 118 mg/dL (60-115); Lipase* 61 U/L (23-300); Total Protein* 7.6 g/dL (6.0-8.3)
--- NOTE | 2024-08-17 16:24 | ED_ITS ---
HPI - General Adult General Chief complaint: Fever Stated complaint: heat exhaustion Time Seen by Provider: 08/17/24 15:26 Source: patient Mode of arrival: ambulatory Limitations: no limitations History of Present Illness HPI narrative: 39-year-old male presenting today with fever. Fever started yesterday with body aches. He has had chills. Decreased appetite. No urinary symptoms such as increased frequency, urgency or dysuria. He does have a cough that is been present for about a week. He does not feel short of breath, cough is nonproductive. Multiple people at home have the same cough. He had the states the for a week he has also had right upper quadrant and epigastric abdominal pain. Nothing really makes it better or worse. He thinks that today does actually feels slightly better. Patient has loose stools which is not new for him, he has a history of diverticulitis. He denies pain across the lower part of the abdomen. Denies any skin rashes. He denies headache or neck pain. No vomiting. Related Data Previous Rx's ?Medication ?Instructions ?Recorded methylphenidate HCl 10 mg biphasic 10 mg PO QAM #30 ca ps 06/29/24 30-70 capsule,extended release methylphenidate HCl 20 mg biphasic 20 mg PO QAM #30 ca ps 07/20/24 30-70 capsule,extended release Allergies Allergy/AdvReac Type Severity Reaction Status Date / Time ampicillin Allergy Mild Unknown Verified 08/17/24 15:05 sulbactam Allergy Mild Unknown Verified 08/17/24 15:05 morphine Allergy Unknown Verified 08/17/24 15:05 Review of Systems Status of ROS: Reports: 10 or more systems reviewed and unremarkable except as noted in History and below [facility] Medical History Diverticulitis ?K57.92 - Diverticulitis of intestine, part unspecified, without perforation or abscess without bleeding (ICD-10) Surgical History History of ear surgery ?Z98.890 - Other specified postprocedural states (ICD-10) Hx of spinal surgery ?Z98.890 - Other specified postprocedural states (ICD-10) Hx of knee surgery ?Z98.890 - Other specified postprocedural states (ICD-10) Hx of colonoscopy ?Z98.890 - Other specified postprocedural states (ICD-10) Family History Mother Brain aneurysm Father Colorectal polyps High blood pressure High cholesterol Diabetes Colon cancer Diverticulitis Brother Colorectal polyps High blood pressure High cholesterol Pre-diabetes Paternal Grandfather Colon cancer Maternal Grandmother Heart disease Maternal Grandfather Heart disease Social History Narrative: Single 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 Never smoke What is your current living situation?: I presently have a place to live Problems where you live: no known problems In the past 12 months, utilities in danger of being shut off: no In past 12 months, lack of transportation kept you from medical appts, meetings, work, or getting things needed for daily living: no In the past 12 mos, have been you worried that your food would run out before you had money to buy more?: never true In the past 12 mos, the food you bought just didn't last and you didn't have money to buy more?: never true Smoking Status: Never smoker How many standard drinks containing alcohol do you have on a typical day: 1 or 2 How often do you have six or more drinks on one occasion: Weekly AUDIT-C Alcohol total score: 3 How often does anyone, including family, friends and others, physically hurt you : never How often does anyone, including family, friends and others, insult or talk down to you: never How often does anyone, including family, friends and others, threaten you with harm: never How often does anyone, including family, friends and others, scream or curse at you: never Exam Narrative: Exam Narrative: Obese, well-developed patient in no acute distress. Alert and oriented. Answers questions appropriately. Mood and affect are appropriate. Thoughts are goal oriented and rational. No tangential or magical thinking noted. Patient speaks in full sentences without needing to catch his breath. HEENT: Normocephalic atraumatic. Pupils are equally round reactive to light. Extraocular muscles are intact. Conjunctivae are moist without any icterus noted. Moist mucous membranes. Posterior pharynx is normal. Neck is soft . Cardiovascular: Tachycardic, S1-S2 present without murmurs. Lungs: Clear to auscultation bilaterally no wheezes rhonchi or rales are appreciated. Patient takes deep breaths without any discomfort. Abdomen: Soft and nondistended with normal bowel sounds. No guarding or rebound. Difficult to assess for organomegaly or masses secondary to body habitus. Patient does have mild right upper quadrant tenderness. Extremities: Bilateral lower extremities are without edema. Skin: Well perfused without any obvious rashes. Const: Vital Signs, click to edit/add: Vital Signs - 24 hr 08/17/24 15:02 08/17/24 15:37 08/17/24 17:03 Temperature 103.1 F H 102.7 F H Pulse Rate [Right Pulse Oximeter] 110 H 103 H Respiratory Rate 18 23 Blood Pressure [Ri ght Upper Arm] 150/103 H 143/82 H Pulse Oximetry 97 94 Oxygen Delivery Me thod Room Air Room Air Room Air Course Course ED Course: Differential diagnosis includes viral syndrome, cholecystitis, pancreatitis, influenza, pneumonia. Blood work was unremarkable. Right upper quadrant ultrasound showed fatty liver. Chest x-ray, read by me, does not show any acute infiltrates. Order added for tick panel and Lyme. Vital Signs Vital signs: Initial Vital Signs Temperature 103.1 F H 08/17/24 15:02 Temperature Source Temporal Artery Scan 08/17/24 15:02 Pulse Rate 110 H 08/17/24 15:02 Pulse Rhythm Regular 08/17/24 15:02 Pulse Strength 3+ Normal 08/17/24 15:02 Respiratory Rate 18 08/17/24 15:02 Blood Pressure 150/103 H 08/17/24 15:02 Blood Pressure Mean 118 H 08/17/24 15:02 Blood Pressure Position Sitting 08/17/24 15:02 Pulse Oximetry 97 08/17/24 15:02 Oxygen Delivery Method Room Air 08/17/24 15:02 Vital Signs Temperature 103.1 F H 08/17/24 15:02 Pulse Rate 110 H 08/17/24 15:02 Respiratory Rate 18 08/17/24 15:02 Blood Pressure 150/103 H 08/17/24 15:02 Pulse Oximetry 97 08/17/24 15:02 Oxygen Delivery Method Room Air 08/17/24 15:02 Temperature 102.7 F H 08/17/24 17:03 Pulse Rate 103 H 08/17/24 17:03 Respiratory Rate 23 06/18/25 17:03 Blood Pressure 143/82 H 08/17/24 17:03 Pulse Oximetry 94 08/17/24 17:03 Oxygen Delivery Method Room Air 08/17/24 17:03 Medications Administered Medications: Discontinued Medications Generic Name Dose Route Start Last Admin Trade Name Aldoq PRN Reason Stop Dose Admin Acetaminophen 1,000 mg 08/17/24 15:37 08/17/24 16:30 Acetaminophen 500 Mg Tablet PO 08/17/24 15:38 1,000 mg ONCE ONE Administration Sodium Chloride 1,000 mls @ 1,000 mls/hr 08/17/24 15:45 08/17/24 16:30 0.9 % Sodium Chloride 1000 Ml IV 08/17/24 16:44 1,000 mls/hr .Q1H MAURILIO Administration Medical Decision Making MDM Narrative Medical decision making narrative: 39-year-old male with fever and body aches. Likely viral in nature. No evidence to suggest bacterial infection today. No symptomatic evidence to suggest meningitis, pericarditis or myocarditis. Lab Data Lab results reviewed: Yes I reviewed the patient's lab results Labs: Lab Results 08/17/24 08/17/24 Range/Units 15:37 15:38 WBC 10.71 (4.50-11.00) K/uL RBC 4.91 (4.30-5.90) m/uL Hgb 14.9 (13.5-17.5) gm/dL Hct 43.6 (37.0-53.0) % MCV 89 (80-100) fL MCH 30 (26-34) pg MCHC 34 (32-36) gm/dL RDW Coeff of Alexa 12.9 (11.5-15.5) % Plt Count 223 (140-440) K/uL Neut % (Auto) 74.6 H (42.0-72.0) % Lymph % (Auto) 13.9 L (20-44) % [place] % (Auto) 10.6 (0.0-11.0) % Eos % (Auto) 0.4 (0.0-7.0) % Baso % (Auto) 0.2 (0.0-3.0) % Neut # (Auto) 8.00 H (1.7-7.0) K/uL Lymph # (Auto) 1.50 (0.90-2.90) K/uL [place] # (Auto) 1.10 H (0.00-0.90) K/UL Eos # (Auto) 0.04 (0.00-0.50) K/uL Baso # (Auto) 0.02 (0.00-0.30) K/uL Abs Immat Gran (auto) 0.03 (0.00-0.30) K/uL Imm/Tot Granulo (auto) 0.3 % Sodium 139 (135-149) mmol/L Potassium 3.9 (3.6-5.1) mmol/L Chloride 101 (96-114) mmol/L Carbon Dioxide 27 (20-32) mmol/L Anion Gap 11 (7-15) mEq/L BUN 14 (5-24) mg/dL Creatinine 0.9 (0.5-1.5) mg/dL Estimated Creat Clear 112.38 Estimated GFR 113 ml/min Glucose 118 H (60-115) mg/dL Lactate 1.4 (0.5-1.9) mmol/L Calcium 9.4 (8.4-10.6) mg/dL Total Bilirubin 1.2 (0.1-1.5) mg/dL Direct Bilirubin 0.2 (0.0-0.5) mg/dL AST 48 H (12-35) U/L ALT 56 H (4-50) U/L Alkaline Phosphatase 70 (40-150) U/L Total Protein 7.6 (6.0-8.3) g/dL Albumin 4.7 (3.3-5.0) g/dL Lipase 61 (23-300) U/L Urine Color Yellow (Yellow) Urine Appearance Clear (Clear) Urine pH 5.5 (5.0-8.5) Ur Specific [place] 1.025 (1.000-1.030) Urine Protein 1+ A (Negative) Urine Glucose (UA) Negative (Negative) Urine Ketones 1+ A (Negative) Urine Blood Negative (Negative) Urine Nitrite Negative (Negative) Urine Bilirubin 1+ A (Negative) Urine Urobilinogen 0.2 (0.2-1.0) Ur Leukocyte Esterase Negative (Negative) Urine RBC 0-2 (0-2) Urine WBC 0-2 (0-5) Urine WBC Clumps Few A (None) Ur Squamous Epith Cells Few (None-Few) Urine Bacteria None (None) SARS-CoV-2 (PCR) Negative SARS-CoV-2 (Negative) Influenza Type A (PCR) Negative PCR FLU A (Negative) Influenza Type B (PCR) Negative PCR FLU B (Negative) Imaging Data US - abdomen: Attestation: I have reviewed the pertinent imaging results. Radiologist's impression: TECHNIQUE: Ultrasound abdomen limited. Sonographic images of the right upper quadrant were obtained using george-scale and color Doppler images. COMPARISON: CT abdomen and pelvis October 31, 2023 FINDINGS: Liver: Diffuse increased echogenicity and mild heterogeneity. No masses. No intrahepatic biliary dilatation. Gallbladder: No stones or sludge. Normal wall thickness. No pericholecystic fluid. Common bile duct: 4 mm. Pancreas: Mostly obscured by bowel gas Right kidney: 11.3 x 5.3 x 5.1 normal echotexture and cortex. No suspicious masses, stones, or hydronephrosis. Vasculature: Proximal abdominal aorta and IVC are normal. IMPRESSION: 1. Diffuse increased echogenicity with mild heterogeneity consistent with diffuse fatty infiltration and/or diffuse disease. Discharge Plan Discharge Clinical Impression: Fever Patient Disposition: Home, Self-Care Condition: Stable Instructions: Fever in Adults (ED) Additional Instructions: Your workup today did not show any evidence of bacterial infection and is consistent with likely a viral infection. No evidence of pneumonia. Okay to take ibuprofen and Tylenol as needed/as prescribed for fever and aches. Return to the emergent per month if you develop he worsening abdominal pain, vomiting, neck pain or confusion. Prescriptions: No Action methylphenidate HCl 10 mg capsule, ER biphasic 30-70 10 mg PO QAM Qty: 30 0RF methylphenidate HCl 20 mg capsule, ER biphasic 30-70 20 mg PO QAM Qty: 30 0RF Rx Instructions: once daily Follow Up/Referrals: Yanely Mauricio PA-C [Primary Care Provider, Family Practice] Stand Alone Forms: [employer] Info Instructions
[2024-08-17] MEDS: ACETAMINOPHEN 500 MG TABLET 1000 MG PO (16:30)
[2024-08-17] MEDS: 0.9 % SODIUM CHLORIDE 1000 ml 1,000 ML IV (16:30)
--- NOTE | 2024-08-17 16:32 | CRLHL7_ITS ---
For Patients: As a result of the Cures Act, medical imaging exams and procedure reports are released immediately into your electronic medical record. You may view this report before your referring provider. If you have questions, please contact your health care provider. INDICATION: Fever. TECHNIQUE: Chest 2 views. COMPARISON: None FINDINGS: Tubes and devices: None. Lungs: Lungs are clear. No sign of infiltrate or mass. Pleura: No pleural effusion. No pneumothorax. Heart: Heart size and vasculature are normal in caliber and appearance. Sandie and Mediastinum: No enlargement. Bones and soft tissues: Thoracolumbar bilateral pedicle screws with dorsal escobar fixation. IMPRESSION: No acute intrathoracic abnormalities. Dictated by Pavel Mendez MD @ 08/17/2024 5:06:43 PM (Electronically Signed)
[2024-08-17 16:33] LABS: RBC Urine 0-2 (0-2); Squamous Epithelial Cell Urine Few (None-Few); WBC Clumps Urine Few; WBC Urine 0-2 (0-5)
[2024-08-17 16:43] LABS: PCR FLU A Negative PCR FLU A (Negative); PCR FLU B Negative PCR FLU B (Negative); SARS PCR* Negative SARS-CoV-2 (Negative)
[2024-08-17 17:03] VITALS: BP 143/82; PULSE 103; RESP 23; TEMP 39.3; O2SAT 94
[2024-08-17 17:30] VITALS: TEMP 38.9
[2024-08-17 18:03] VITALS: TEMP 39.1
[2024-08-17] MEDS: KETOROLAC 30 MG/ML inj IVP (18:03)
[2024-08-17 18:10] VITALS: BP 123/71; PULSE 100; RESP 20; TEMP 37.7; O2SAT 95
[2024-08-19 14:37] LABS: Lyme ELISA Reflex 0.63 IV (<=0.90)
== END 2024-08-17 18:19 | disposition home or self-care (01) ==
PROVIDERS: Emergency Provider Family Medicine; PCP Physician Assistant Medical
DX: R50.9 Fever, unspecified (principal)
CPT/HCPCS: 36415; 71046; 76705; 80048; 80076; 81001; 83605; 83690; 85025; 86618; 87086; 87468; 87469; 87484; 87631; 87798; 96374; 99284; A9270; J1885; J7030